=== PATIENT | male | born 1935 | race Caucasian/White ===

== ENCOUNTER → 2016-08-21 | Outpatient (CLI) | payer OTHER | END | disposition home or self-care (01) | LOC: GMAJ 10:20 | PROVIDERS: ATTEND Family Medicine | DX: Z12.5 Encounter for screening for malignant neoplasm of prostate (principal); M62.81 Muscle weakness (generalized) ==

== ENCOUNTER → 2017-07-09 | Outpatient (CLI) | payer OTHER | END | disposition home or self-care (01) | LOC: GMAJ 10:25 | PROVIDERS: ATTEND Family Medicine | DX: E78.00 Pure hypercholesterolemia, unspecified (principal); I10 Essential (primary) hypertension ==

== ENCOUNTER → 2017-12-09 | Outpatient (CLI) | payer MEDICARE | LOC: GMAJ 10:39 | PROVIDERS: ATTEND Family Medicine | DX: Z12.5 Encounter for screening for malignant neoplasm of prostate (principal) ==

== ENCOUNTER → 2018-06-08 | Outpatient (CLI) | payer MEDICARE | LOC: GMAJ 11:14 | PROVIDERS: ATTEND Family Medicine | DX: I10 Essential (primary) hypertension (principal) ==

== ENCOUNTER → 2019-10-20 | Outpatient (CLI) | payer MEDICARE | LOC: NC 11:09 | PROVIDERS: ATTEND Family Medicine | DX: I12.9 Hypertensive chronic kidney disease with stage 1 through stage 4 chronic kidney disease, or unspecified chronic kidney disease (principal); N18.9 Chronic kidney disease, unspecified; I48.91 Unspecified atrial fibrillation; G20 Parkinson's disease; I25.10 Atherosclerotic heart disease of native coronary artery without angina pectoris; Z12.5 Encounter for screening for malignant neoplasm of prostate; Z95.5 Presence of coronary angioplasty implant and graft | CPT/HCPCS: 80048; 80061; 80076; 85025; G0103 ==

== ENCOUNTER → 2020-02-04 | Outpatient (CLI) | payer MEDICARE ==
--- NOTE | 2020-02-07 09:54 | MRI ---
EXAM DESCRIPTION: Lumbar Spine w/o Contrast : Magnetic Resonance Imaging. CLINICAL HISTORY: SPINAL STENOSIS LUMBAR REGION COMPARISON: Noncontrast MRI scan lumbar spine October 2015. TECHNIQUE: Multiplanar, multiple standard sequences, non contrast MRI, lumbar spine. FINDINGS: L5-S1: The disc is well visualized on axial T2 series 501, image 3. L5-S1: Minimal posterior disc space loss with tiny bulge in the midline into the left of midline encroaching on the base of the left foramen with moderate narrowing. Mild narrowing of the right foramen. Hypertrophic changes on the facet joints and posterior flavum ligaments) canal elements). Disc is abutting the left subarticular recess and the descending left S1 nerve. Mild canal narrowing. Stable from the prior study. L4-L5: Moderate disc space loss and disc desiccation. Anterior disc bulge and endplate ridging. Moderate endplate reactive changes inferior L4 endplate with Schmorl's node. Posterior broad-based bulge. Grade 1 retrolisthesis with minimal disc migration below the disc space. Hypertrophic changes in the canal elements. Disc also encroaching on the left subarticular recess and impinging the left L5 nerve. AP canal diameter 8 mm. This has progressed since the prior study. Mild bilateral foraminal narrowing. More moderate on the right. L3-L4: Disc desiccation with no posterior bulge. Disc space maintained. Hypertrophic changes in the canal elements. AP canal diameter 12 mm. Bilateral foraminal narrowing with facet joints and abutting the exiting right L3 number nerves. No interval change. L2-L3: Disc desiccation with disc space maintained. Hypertrophic changes in the canal elements. AP canal diameter 12 mm. Mild bilateral foraminal narrowing. Stable since the prior study. L1-L2: Anterior endplate reactive changes disc bulging and disc spurs. Anterior mild endplate reactive changes. Posterior broad-based bulge. Minimal hypertrophic changes in the canal elements. AP canal diameter 12 mm. No change from the prior study. Conus terminates just above the disc space. L5-S1. Disc space maintained with disc desiccation. No bulging. Minimal hypertrophic changes in the canal elements. Canal and foramina are patent. No change from the prior study. No significant scoliosis. Paravertebral soft tissues minimal paraspinal muscle atrophy.. Distal cord normal signal and caliber. Otherwise normal marrow signal in the remaining vertebral bodies and the posterior elements. Vertebral bodies are not compressed at any level. IMPRESSION: 1. 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 Multilevel hypertrophic changes in the facet joints and posterior flavum ligaments. 2. Multifactorial L4-L5 mild to moderate canal central stenosis. Disc encroaching on the left subarticular recess with possible compromise left L5 nerve. This is progressed since the prior study. 3. Anterior mild to moderate endplate reactive changes, disc bulge and anterior spurs. Moderate canal narrowing. No interval change. Electronically signed by: Aleksandr Correia MD 02/07/2020 9:52 AM CDT
== END ==
LOC: MRI 10:25
PROVIDERS: ATTEND Family Medicine
DX: M48.062 Spinal stenosis, lumbar region with neurogenic claudication (principal); M47.896 Other spondylosis, lumbar region; M51.36 Other intervertebral disc degeneration, lumbar region; M51.86 Other intervertebral disc disorders, lumbar region; M25.78 Osteophyte, vertebrae; M46.96 Unspecified inflammatory spondylopathy, lumbar region; M24.28 Disorder of ligament, vertebrae

== ENCOUNTER 2020-03-20 05:24 | Day surgery (SDC) | payer MEDICARE ==
[2020-03-20] MEDS ORDERED: LIDOCAINE 1% 10 ML VIAL INJ ONE (08:47)
[2020-03-20] MEDS ORDERED: BETAMETHASONE ACETATE/BETAMETH 6 MG/ML VIAL IM ONE (08:47)
[2020-03-20] MEDS ORDERED: DEXAMETHASONE INJ 10 MG/ML VIAL ONE (08:47)
[2020-03-20] MEDS ORDERED: BUPIVACAINE 0.5% 30 ML VIAL INJ ONE (08:47)
== END 2020-03-20 10:10 | disposition home or self-care (01) ==
LOC: AMB 05:24
PROVIDERS: ATTEND Family Medicine Sports Medicine
DX: M47.816 Spondylosis without myelopathy or radiculopathy, lumbar region (principal); M48.062 Spinal stenosis, lumbar region with neurogenic claudication; I25.10 Atherosclerotic heart disease of native coronary artery without angina pectoris; I48.91 Unspecified atrial fibrillation; K21.9 Gastro-esophageal reflux disease without esophagitis; G20 Parkinson's disease; Z88.5 Allergy status to narcotic agent; Z79.899 Other long term (current) drug therapy; Z79.02 Long term (current) use of antithrombotics/antiplatelets

== ENCOUNTER 2020-04-10 05:12 | Day surgery (SDC) | payer MEDICARE ==
[2020-04-10] MEDS ORDERED: BUPIVACAINE 0.5% 30 ML VIAL INJ ONE (07:11)
[2020-04-10] MEDS ORDERED: LIDOCAINE 1% 10 ML VIAL INJ ONE (07:11)
[2020-04-10] MEDS ORDERED: BETAMETHASONE ACETATE/BETAMETH 6 MG/ML VIAL IM ONE ×2 (10:23→11:12)
== END 2020-04-10 10:50 | disposition home or self-care (01) ==
LOC: AMB 05:12
PROVIDERS: ATTEND Family Medicine Sports Medicine
DX: M47.816 Spondylosis without myelopathy or radiculopathy, lumbar region (principal); M54.5 Low back pain; M48.062 Spinal stenosis, lumbar region with neurogenic claudication; I25.10 Atherosclerotic heart disease of native coronary artery without angina pectoris; K21.9 Gastro-esophageal reflux disease without esophagitis; I48.91 Unspecified atrial fibrillation; G20 Parkinson's disease; I12.9 Hypertensive chronic kidney disease with stage 1 through stage 4 chronic kidney disease, or unspecified chronic kidney disease; N18.9 Chronic kidney disease, unspecified; Z95.5 Presence of coronary angioplasty implant and graft; Z88.5 Allergy status to narcotic agent; Z79.82 Long term (current) use of aspirin; Z79.899 Other long term (current) drug therapy